=== PATIENT | female | born 1980 | race Caucasian/White ===

== ENCOUNTER → 2017-11-11 | Outpatient (CLI) | payer OTHER | LOC: FIMAGING 09:37 | PROVIDERS: ATTEND Obstetrics & Gynecology | DX: O09.522 Supervision of elderly multigravida, second trimester (principal); O09.292 Supervision of pregnancy with other poor reproductive or obstetric history, second trimester; O34.219 Maternal care for unspecified type scar from previous cesarean delivery; O99.282 Endocrine, nutritional and metabolic diseases complicating pregnancy, second trimester; Z68.34 Body mass index [BMI] 34.0-34.9, adult; Z36.89 Encounter for other specified antenatal screening; Z3A.19 19 weeks gestation of pregnancy ==

== ENCOUNTER → 2017-12-15 | Outpatient (CLI) | payer OTHER | LOC: FIMAGING 10:14 | PROVIDERS: ATTEND Obstetrics & Gynecology | DX: I80.02 Phlebitis and thrombophlebitis of superficial vessels of left lower extremity (principal) ==

== ENCOUNTER 2017-12-18 08:52 | Observation (INO) | payer OTHER ==
--- NOTE | 2017-12-18 11:01 | GHP ---
DATE OF ADMISSION: 12/18/2017 ADMITTING DIAGNOSIS: Intrauterine at 24 and 3/7 weeks gestation with left leg varicosities , suspected superficial thrombophlebitis and superficial clot. HISTORY OF PRESENT ILLNESS: Jody is a 37-year-old 4, para 1-0-2-1, who is at 24 and 3/7 week s' gestation with an EDC of 04/06/2018, based on LMP and early ultrasound. Her has been co mplicated by bilateral lower leg varicosities which are increasing in the left lower leg and she was evaluated most recently this week, on Wednesday, with a painful clot in the superficial vein over her left tibia. This morning patient complains of increasing pain and a new clot that has developed in the medial side of her knee and she has tenderness and erythema in the surrounding cutaneous tissue. The patient is concerned about possible deep vein thrombosis and increasing pain with superficial cl ots, and what she can do. She has no obstetrical complaints. She has good movement. No cramp ing or contractions, no vaginal bleeding, leakage of fluid, and otherwise feels well. Negative revie w of systems. The patient was recently evaluated, on 12/15, for this same complaint and had an extre mity venous Doppler study that showed superficial thrombophlebitis in the left anterior leg which is the area of pain. It was in a great saphenous system with a branch coming off her knee. She would b e a candidate for laser ablation at a later time. An upright venous Doppler study confirmed reflux a nd incompetence, it would be needed after delivery, but she was sent home with recommendations to use compression stockings, heat and rest as much as possible, and despite all of those measures, she has developed a new clot in the medial aspect of her left knee. PAST OBSTETRICAL HISTORY: She is a 4, this is her 4th . In January 2012, she had s pontaneous AB at 7 weeks. In December of 2014, she had a delivery at 38 weeks for arrest o f descent, that baby was 6 pounds 5 ounces, and in March of 2017, she had a missed AB diagnosed at 12 weeks, and that fetus was NIPT positive for trisomy 21. She had a D and C for that. This pregna ncy is normal reassuring, NIPT normal female and had a normal AFP and has normal level 2 ultrasound, anatomy is normal. She has no other significant medical or surgical issues. OBJECTIVE: Currently, she is afebrile. Vital signs are stable. Dopplers were reassuring. On exam, her left lower extremity has a large tender 4 cm x 5 cm varicosity medial to her left knee cassie t appears to be a superficial clot, as well as mottling and erythema along the cutaneous skin. Of no te, the patient is adopted and does not know her family history in terms of any history of clotting o r other issues. ASSESSMENT AND PLAN: A 37-year-old 4, para 1-0-2-1 at 24 and 3/7 weeks gestation. 1. Repeat left extremity Doppler study today to ensure that it is not involving the deep vein system or close to her inguinal area. 2. We will draw coag studies to rule out any familial clotting disorders, Factor 5 Leiden, protein C , protein S, antithrombin 3, anticardiolipin and lupus anticoagulant. These will be pending. I assu me the venous Doppler studies will be negative for deep vein issues and then I will discharge her wit h a trial of scheduled NSAIDS, heat, elevation and compression stockings. /[id number]/MODL
== END 2017-12-18 12:30 | disposition home or self-care (01) ==
LOC: FLD 08:52 → INTOOBSV 08:52
PROVIDERS: ADMIT Obstetrics & Gynecology; ATTEND Obstetrics & Gynecology
DX: O22.22 Superficial thrombophlebitis in pregnancy, second trimester (principal); Z3A.24 24 weeks gestation of pregnancy
CPT/HCPCS: 93971; G0378; 85301-90; 85302-90; 85306-90; 86147-90

== ENCOUNTER 2018-04-01 06:24 | Inpatient (IN) | payer OTHER ==
--- NOTE | 2018-03-08 17:36 | GHP ---
PLANNED PROCEDURE: Repeat low transverse section with possible bilateral salpingectomy. INDICATION: Patient is a 37-year-old 4, para 1-0-2-1, who will be 39 weeks gestation. Her e stimated date of confinement is 04/06/2018, dated by last menstrual period of 06/30/2017, consistent with a 7-week ultrasound. She has a history of a previous low transverse section for arrest of descent. The patient has been counseled on options of vaginal after section versu s repeat . Patient would like to have a repeat section. She and her are d iscussing whether or not she wants to have a bilateral salpingectomy or not. Her family status is co mplete, and they will let us know day of surgery. The risks and benefits have been reviewed with the patient. The patient has been properly consented. MEDICAL HISTORY: Significant for extensive superficial varicose veins, migraines; occasionally with aura, history of oral HSV, history of HPV, obesity. MEDICATIONS: vitamins and iron. SURGICAL HISTORY: section, wisdom tooth extraction, dilation and curettage. ALLERGIES: Percocet, which is an intolerance. FAMILY HISTORY: The patient is adopted. Family history is unknown. SOCIAL HISTORY: Patient is . She denies tobacco, alcohol, or drug use. 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 She is a 4, para 1-0 -2-1, and in 01/2014, she had a spontaneous that did not require a D and C. In 12/2014, she had a primary low transverse section for arrest of descent of a 6 pound 5 ounce male infant at 38 weeks gestation, and patient progressed to complete and pushed to 3-4 hours. Baby was in the wrong position, and she underwent a primary section and had a cervical extension. In , she had a missed diagnosed at 12 weeks, trisomy 21 noted on testing; she had a D and C for that. The patient does have a history of HPV in 2013, but repeat Pap smears have all bee n negative. She thinks she has a history of a cold sore as a child. REVIEW OF SYSTEMS: A 10-point review of systems is negative. There is positive movement. No loss of fluid. No vaginal bleeding. She does have bilateral varicose veins that cause pain occasion ally, but no signs or symptoms of DVT. PHYSICAL EXAMINATION: VITAL SIGNS: Stable. GENERAL APPEARANCE: Alert and oriented x3. PSYCH: Ap propriate affect. MUSCULOSKELETAL: Grossly intact. NEURO: Grossly intact. NECK: Mobile and supp le, with no thyromegaly. HEART: Regular. LUNGS: Clear to auscultation bilaterally. ABDOMEN: Gra vid, nondistended, nontender. No other organomegaly is noted. EXTREMITIES: Reveal no calf tenderne ss or edema. She has extensive bilateral varicose veins bilaterally. PELVIC: Deferred. in the vertex presentation. LABS: Blood type A negative. Antibody screen negative. Rubella immune. GBS is pending. HBsAg negative. HIV negative. Her 50 g glucose was 121. testing was negative. Alpha fet oprotein was negative. ASSESSMENT AND PLAN: A 37-year-old, 4, para 1-0-2-1, who will be 39+ weeks gestation, who august s a history of previous low transverse section. She has decided to have a repeat s ection and is declining a trial of labor. Her family status is complete and she and her are discussing whether or not she wants to have a bilateral salpingectomy. Risks and benefits have been extensively reviewed with the patient, and patient has been properly consented. /[id number]/MODL
[2018-04-01] MEDS: LR 1,000 ML IV SCH ×2 (07:30→11:52)
[2018-04-01] MEDS ORDERED: CITRIC ACID/SODIUM CITRATE 30 ML UDCUP PO ONE (07:39)
[2018-04-01] MEDS ORDERED: LR 500 ML IV ONE (07:39)
[2018-04-01] MEDS ORDERED: ceFAZolin 2 GM/DEXTROSE 100 ML IV ONE (07:39)
[2018-04-01 08:01] LABS: PLATELET COUNT 209 10^3/uL (150-400)
[2018-04-01] MEDS ORDERED: HYDROmorphONE/DILAUDID 1 MG/ML INJ IVP PRN (08:54)
[2018-04-01] MEDS ORDERED: MEPERIDINE 25 MG/0.5 ML AMP IVP PRN (08:54)
[2018-04-01] MEDS ORDERED: fentaNYL 100 MCG/2 ML INJ IVP PRN (08:54)
--- NOTE | 2018-04-01 08:54 | PREANESOB ---
Obstetric Pre-Anesthesia Info - General Info Proposed Procedure: C/S NPO Start Time: 00:00 : 4 Para: 1 PHIL: 04/06/18 Gestational Age: 39 week(s) and 2 day(s) - Info Status: Full Term Monitors: External FHR Baseline (bpm): 140 FHR Pattern: Reassuring - Labor Status Pitocin: Planned PIH: No Magnesium Sulfate in Use: No Section History: Repeat Indications for Current Section: Other (Specify) (Repeat, desired planned ) Anesthesia Allergies/Adverse Reactions: Allergy/AdvReac Type Severity Reaction Status Date / Time oxycodone [Oxycodone] Allergy Vomiting Verified 01/06/15 15:51 Home Medications: Medication Instructions Recorded Ibuprofen [Motrin (*)] 600 mg PO Q6 PRN #30 tab 01/03/15 Vitamins 01/06/15 Minipill 03/22/16 Visit Medications: Generic Name Dose Route Start Last Admin Trade Name Freq PRN Reason Stop Dose Admin Lactated Ringer's 1,000 mls @ 125 mls/hr 04/01/18 08:00 04/01/18 07:30 Lr IV 04/02/18 07:59 1,000 mls CONT ARMAAN Administration Discontinued Medications Generic Name Dose Route Start Last Admin Trade Name Freq PRN Reason Stop Dose Admin Citric Acid/Sodium Citrate 30 ml 04/01/18 07:39 04/01/18 08:42 Bicitra PO 04/01/18 07:40 30 ml ONCALL ONE Administration Cefazolin Sodium/Dextrose 100 mls @ 200 mls/hr 04/01/18 07:39 04/01/18 08:43 Ancef IV 04/01/18 08:08 100 mls ONCALL ONE Administration Protocol Lactated Ringer's 500 mls @ 0 mls/hr 04/01/18 07:39 Lr IV 04/01/18 07:40 ONCE ONE As Directed - Vital Signs Latest Vital Signs (Nursing): Temp Pulse Resp BP Pulse Ox 36.9 C 93 16 128/86 H 95 04/01/18 06:42 04/01/18 06:42 04/01/18 06:42 04/01/18 06:42 04/01/18 06:42 Height/Weight (Nursing): Height 160.02 cm Weight 92.079 kg Labs: 04/01/18 07:57
[2018-04-01] MEDS ORDERED: PHENYLEPHRINE 10 MG/ML SDV ONE ×2 (08:59→09:48)
[2018-04-01] MEDS ORDERED: BUPIVACAINE/DEXTROSE 7.5MG/ML 2 ML SPINAL AMP SP ONE (08:59)
[2018-04-01] MEDS ORDERED: ATROPINE SULFATE 0.4 MG/ML VIAL ONE ×2 (08:59→09:48)
[2018-04-01] MEDS ORDERED: PROPOFOL 200 MG/20 ML VIAL ONE (09:00)
[2018-04-01] MEDS ORDERED: morphINE PF 5 MG/10 ML INJ ONE (09:03)
--- NOTE | 2018-04-01 09:03 | PDHPUP ---
History & Physical Update H&P update statement: This history and physical update is based on an assessment of the patient which was completed after admission or registration (within 24 hours), but prior to the surgery/procedure. H&P update: H&P reviewed & patient examined, no change in patient's condition since H&P completed (patient has decided she wants a bilateral salpingectomy if baby is good. )
[2018-04-01] MEDS ORDERED: fentaNYL 100 MCG/2 ML INJ ONE (10:41)
[2018-04-01] MEDS ORDERED: LACTULOSE 20 GM/30 ML UDCUP PO PRN (10:47)
[2018-04-01] MEDS ORDERED: POLYETHYLENE GLYCOL 3350 17 GM PKT PO PRN (10:47)
[2018-04-01] MEDS ORDERED: PROMETHAZINE HCL 25 MG/ML INJ IVP PRN (10:47)
[2018-04-01] MEDS ORDERED: DOCUSATE SODIUM 100 MG CAP PO PRN (10:47)
[2018-04-01] MEDS ORDERED: MAGNESIUM HYDROXIDE 30 ML UDCUP PO PRN (10:47)
[2018-04-01] MEDS ORDERED: BISACODYL 10 MG SUPP PR PRN (10:47)
[2018-04-01] MEDS: KETOROLAC 30 MG/1 ML SDV IVP SCH ×2 (11:50→19:12)
[2018-04-01] MEDS: IBUPROFEN 600 MG TAB PO SCH ×3 (14:12→18:38)
[2018-04-01] MEDS ORDERED: ONDANSETRON 4 MG/2 ML VIAL IVP PRN (14:56)
[2018-04-01] MEDS ORDERED: NALOXONE HCL 0.4 MG/ML INJ IVP PRN (14:56)
--- NOTE | 2018-04-01 14:56 | POSTANESTH ---
Post Anesthetic Evaluation Cardiovascular Status: Normal, Stable Respiratory Status: Normal, Stable Level of Consciousness/Mental Status: Can Participate in Eval Pain Control: Adequate, Prn Tx Ordered Nausea/Vomiting Control: Adequate, Prn Tx Ordered Complications Possibly Related to Anesthesia: None Noted (moving feet and having some pain in abdomen when finished with C/S and in PACU. Able to hold and nurse baby)
[2018-04-01] MEDS: ACETAMINOPHEN 325 MG TAB PO SCH ×2 (15:13→18:22)
--- NOTE | 2018-04-01 22:17 | OBDEL ---
Info Type: Repeat Presentation at Delivery: Vertex L&D Analgesia/Anesthesia Type: Spinal GBS+: No Intrapartum Medications: Generic Name Dose Route Start Last Admin Trade Name Freq PRN Reason Stop Dose Admin Acetaminophen 650 mg 04/01/18 11:00 04/01/18 18:22 Tylenol PO 09/28/18 10:59 650 mg Q6H ARMAAN Administration Lactated Ringer's 1,000 mls @ 125 mls/hr 04/01/18 08:00 04/01/18 11:52 Lr IV 04/02/18 07:59 1,000 mls CONT ARMAAN Administration Ibuprofen 600 mg 04/01/18 11:00 04/01/18 18:38 Motrin PO 09/28/18 10:59 600 mg Q6H ARMAAN Administration Ketorolac Tromethamine 30 mg 04/01/18 11:00 04/01/18 19:12 Toradol IVP 04/02/18 05:01 Not Given Q6H ARMAAN Promethazine HCl 25 mg 04/01/18 10:47 04/01/18 13:52 Phenergan IVP 09/28/18 10:46 25 mg Q6HRS PRN Administration Nausea/Vomiting, Use 1st Discontinued Medications Generic Name Dose Route Start Last Admin Trade Name Freq PRN Reason Stop Dose Admin Citric Acid/Sodium Citrate 30 ml 04/01/18 07:39 04/01/18 08:42 Bicitra PO 04/01/18 07:40 30 ml ONCALL ONE Administration Cefazolin Sodium/Dextrose 100 mls @ 200 mls/hr 04/01/18 07:39 04/01/18 08:43 Ancef IV 04/01/18 08:08 100 mls ONCALL ONE Administration Protocol Indications for Delivery: Elective Vaginal Delivery - Labor and Delivery Rupture of Membranes Date: 04/01/18 Rupture of Membranes Time: 09:44 Placenta Delivery Date: 04/01/18 Placenta Delivery Time: 09:46 Operative Report - Delivery Pre-op Diagnoses: IUP 39 weeks, history prior c section, declines trail of labor , family status complete Post-op Diagnoses: same as pre op plus extensive adhesions History of Prior Section: Yes Number of Prior Sections: 1 Nulliparous Prior to Delivery: No Indications for Prior Section: Arrest of Descent, Non-reas. Status Indications for Current Section: Elective/Repeat, Other (Specify) ( Repeat, desired planned ) Procedure: Scheduled, Low Transverse, Tubal Ligation Surgeon: Renea Agosto Financial Management Analyst: Macrina Churchill (keith de leon) Anesthesiologist: Manjula Benson Complications: None Specimen(s)/Path: Fallopian Tube(s) EBL: 700 Data PHIL: 04/06/18 Gestational Age: 39 week(s) and 2 day(s) Chan Delivery Date: 04/01/18 Delivery Time: 09:44 Sex of Infant: Female Weight (gm): 3196 kg Score (1 Min): 8 Score (5 Min): 9 ICD10 Worksheet Patient Problems: Problems Problem Status Onset delivery delivered Acute Spontaneous onset of labor Acute
[2018-04-02] MEDS: IBUPROFEN 600 MG TAB PO SCH ×4 (00:46→19:46)
[2018-04-02] MEDS: SENNOSIDES/DOCUSATE SODIUM TAB PO SCH ×3 (00:47→19:46)
[2018-04-02] MEDS: ACETAMINOPHEN 325 MG TAB PO SCH ×4 (04:11→19:25)
[2018-04-02] MEDS: KETOROLAC 30 MG/1 ML SDV IVP SCH (04:11)
[2018-04-02] MEDS: HYDROCODONE/APAP 5/325 TAB PO PRN ×4 (07:54→21:00)
--- NOTE | 2018-04-02 08:34 | GOP ---
DATE OF OPERATION: 04/01/2018 SURGEON: Renea Agosto DO WORKERS COMPENSATION CLAIMS SUPERVISOR: 1. Macrina Churchill MD. 2. Gail Mcdonald CNM, being proctored by Macrina Churchill. ANESTHESIA: Spinal. ANESTHESIOLOGIST: Patience Benson DO PREOPERATIVE DIAGNOSIS: 1. Intrauterine at 39+ weeks. 2. History of previous low transverse section. Declines trial of labor. 3. Family status complete. POSTOPERATIVE DIAGNOSIS: 1. Intrauterine at 39+ weeks. 2. History of previous low transverse section. Declines trial of labor. 3. Family status complete. 4. Extensive adhesions. PROCEDURE PERFORMED: FINDINGS: 1. Viable female in the cephalic presentation delivered at 9:44 a.m. Apgars were 8 and 9. 2. Intact placenta with 3-vessel cord. 3. Normal ovaries, uterus and tubes. 4. Extensive peritoneal adhesions to the anterior abdominal wall and the uterus. SPECIMENS: Bilateral fallopian tubes. INDICATIONS: Patient is a 37-year-old, 4, para 1-0-2-1, who will be 39 weeks gestation. She has a history of a previous low transverse section and has decided against a trial of labor . Her family status is complete is complete and would like to have a bilateral salpingectomy. Risks and benefits have been reviewed with the patient. Patient has been properly consented. DESCRIPTION OF PROCEDURE: Patient was taken to the operating room with intravenous fluids in place. She was then placed on the operating room table where spinal anesthesia was obtained. She was then repositioned into the dorsal supine position with a leftward tilt. Wynne catheter was placed. Venod yne's were placed on her lower extremities and she was then prepped and draped in normal sterile [facility] ion. Anesthesia was assessed and found to be adequate. A Pfannenstiel skin incision was then made 2 fingerbreadths above the pubic symphysis. The incision was then carried through to the underlying l john of fascia with the Bovie. The fascia was then nicked in the midline and the fascial incision wa s extended laterally. The superior aspect of the fascial incision was then grasped with the Farida, tented up and the underlying rectus muscle dissected off bluntly with the Bovie. Attention was then turned to the inferior aspect of the fascial incision, which in a similar fashion was grasped with a Farida, tented up, and the underlying rectus muscle dissected off bluntly and with the Bovie. The re ctus muscle was then in the midline. The peritoneum was then identified, tented up, and en tered sharply with the Metzenbaum scissors. The incision was extended superiorly and inferiorly with excellent visualization of the bladder. An exam inside the peritoneal cavity was performed and ther e was noted to be extensive adhesions between the anterior abdominal wall and the uterus. These were carefully taken down to allow for easier access to the lower uterine segment. The bladder blade was then inserted. The vesicouterine peritoneum was then identified, tented up, and entered sharply wit h the Metzenbaum scissors. The incision was extended laterally and the bladder flap was created digi tally. The bladder blade was then reinserted. The uterus was then incised in low transverse fashion with the scalpel. The uterine incision was extended laterally. A large amount of clear fluid was n oted. The uterine incision was extended laterally. The viable infant was then delivered through the incision without difficulty. Delayed cord clamping x1 minute was performed. The cord was then clam ped x2 and cut and the infant was handed off to awaiting nurse practitioner. The intact augustus alves with 3-vessel cord then delivered without difficulty. The uterus was then exteriorized and evelyne ared of all clots and debris and wrapped in a moist laparotomy sponge. The hysterotomy was closed wi th 0 Vicryl in a running locked fashion. A 2nd 0 Vicryl stitch was used to imbricate the uterine inc ision. Additional adhesions were taken down from the lower uterine segment and the omentum and anter ior abdominal wall. The bilateral salpingectomy was performed by skeletonizing the vessels going to the fallopian tubes and with using 2-0 Vicryl suture hemostasis was assured. This was done bilateral ly. The uterus was then returned to the patient's abdomen. The tubal ligation sites were found to b e remaining hemostatic. The hysterotomy was found to be remaining hemostatic. Gutters were cleared of all clots and debris. Peritoneum was reapproximated with 3-0 Vicryl in a running fashion. Rectus muscles reapproximated with 2-0 Vicryl. Fascia was closed with 0 Vicryl in a running fashion. Scar pa's tissue was reapproximated with 3-0 Vicryl in a running fashion. Subcuticular tissue was reappro ximated with 3-0 Vicryl in a running fashion. The skin was then closed with yves. Sponge, lap, a nd needle count correct x2. The patient was transported to recovery room in stable condition. /[id number]/MODL
--- NOTE | 2018-04-02 11:03 | OBPP ---
Progress Note Assessment/Plan: Assessment: pod# 1 s/p RLTCS with bilateral salpingectomy anemia breast feeding routine post operative and post course Plan: 04/02/18 11:00 Subjective/ Course: 04/02/18 11:01 patient is doing well. much better recovery than after g1. pain is well controlled. normal lochia. passing gas. tesfaye still in. denies headache and changes in vision. tolerating diet. breast feeding is going well. Objective: 04/02/18 01:05 Patient ABO/Rh A NEGATIVE 04/01/18 07:57 Temp Pulse Resp BP Pulse Ox 37.4 C 95 17 105/60 93 04/02/18 05:10 04/02/18 08:00 04/02/18 05:10 04/02/18 05:10 04/02/18 08:00 Physical Exam - Physical Exam Neck: non-tender, full range of motion Respiratory: chest non-tender, lungs clear, normal breath sounds Cardiac/Chest: normal peripheral pulses, regular rate, rhythm Abdomen: normal bowel sounds, non-tender, other (fundus firm and non tender) Extremities: normal range of motion, non-tender, normal inspection, normal capillary refill Skin: normal color, warm/dry, other (incision covered) Neuro/Psych: no motor/sensory deficits, alert, normal mood/affect, oriented x 3
[2018-04-02] MEDS: FERRO-SEQUELS 65 MG TAB.ER PO SCH (13:12)
--- NOTE | 2018-04-02 17:58 | SOAPPROG ---
SOAP Progress Note Assessment/Plan: Assessment: S/P Csection with Duramorph spinal for post op pain. Follow up visit. Plan: 04/02/18 17:57 Subjective: Complaints of mild itching no headache or nausea Objective: Vital Signs Temp Pulse Resp BP Pulse Ox 37.4 C 95 17 105/60 93 04/02/18 05:10 04/02/18 08:00 04/02/18 05:10 04/02/18 05:10 04/02/18 08:00 Laboratory Results 04/02/18 01:05 04/01/18 04/02/18 04/03/18 05:59 05:59 05:59 Intake Total 4475 Output Total 3850 1600 Balance 625 -1600 - Time Spent With Patient Time Spent With Patient: 10 minutes ICD10 Worksheet Patient Problems: Problems Problem Status Onset delivery delivered Acute Spontaneous onset of labor Acute
[2018-04-03] MEDS: ACETAMINOPHEN 325 MG TAB PO SCH ×3 (01:44→16:32)
[2018-04-03] MEDS: IBUPROFEN 600 MG TAB PO SCH ×5 (01:44→20:15)
[2018-04-03] MEDS: HYDROCODONE/APAP 5/325 TAB PO PRN ×5 (01:44→20:17)
--- NOTE | 2018-04-03 11:27 | OBPP ---
Progress Note Assessment/Plan: Assessment: 37 y/o POD #2 s/p Rpt LTCS doing well. Plan: Bowel protocol today. Encourage ambulation. support and routine POC. Anticipate d/c home tomorrow. 04/03/18 11:26 Subjective/ Course: 04/02/18 11:01 patient is doing well. much better recovery than after g1. pain is well controlled. normal lochia. passing gas. tesfaye still in. denies headache and changes in vision. tolerating diet. breast feeding is going well. 04/03/18 11:24 Pt is dong well. She has good pain control on po meds. She is feeling gas pain like her body is trying to have a BM. We discussed bowel protocol and she will be proactive today. She is ambulating and voiding well and has min lochia. Breast feeding is going well and she feels she will be ready to d/c home tomorrow. Objective: 04/02/18 01:05 Patient ABO/Rh A NEGATIVE 04/01/18 07:57 Temp Pulse Resp BP Pulse Ox 36.8 C 84 18 115/73 95 04/03/18 08:00 04/03/18 08:00 04/03/18 08:00 04/03/18 08:00 04/03/18 08:00 Uterine Position/Fundal Height: Umbilicus -2 Uterine Tone: Firm Physical Exam - Physical Exam General Appearance: alert, no apparent distress Neck: non-tender, full range of motion, supple Respiratory: chest non-tender, lungs clear, normal breath sounds Cardiac/Chest: regular rate, rhythm Abdomen: normal bowel sounds, incision (c/d/i) Extremities: swelling (no), Janeen's sign (neg)
[2018-04-03] MEDS: SIMETHICONE 80 MG TAB CHEW PO PRN ×2 (12:19→20:16)
[2018-04-03] MEDS: SENNOSIDES/DOCUSATE SODIUM TAB PO SCH ×2 (12:19→20:16)
[2018-04-03] MEDS: FERRO-SEQUELS 65 MG TAB.ER PO SCH (12:19)
[2018-04-04] MEDS: HYDROCODONE/APAP 5/325 TAB PO PRN ×3 (00:59→09:12)
[2018-04-04] MEDS: IBUPROFEN 600 MG TAB PO SCH ×2 (02:09→08:18)
[2018-04-04] MEDS: ACETAMINOPHEN 325 MG TAB PO SCH ×2 (06:20→11:30)
[2018-04-04] MEDS: FERRO-SEQUELS 65 MG TAB.ER PO SCH (08:18)
[2018-04-04] MEDS: SENNOSIDES/DOCUSATE SODIUM TAB PO SCH (08:20)
[2018-04-04 09:56] VITALS: BP 126/68
--- NOTE | 2018-04-04 11:40 | OBPP ---
Progress Note Assessment/Plan: Assessment: 37 y/o POD #3 s/p Rpt LTCS doing well. Plan: D/c home today with Rx [place], Ibuprofen and Ferrous-sequels. Follow-up @ [facility] 2, 4, and 6 weeks. 04/03/18 11:26 04/04/18 11:39 Subjective/ Course: 04/02/18 11:01 patient is doing well. much better recovery than after g1. pain is well controlled. normal lochia. passing gas. tesfyae still in. denies headache and changes in vision. tolerating diet. breast feeding is going well. 04/03/18 11:24 Pt is dong well. She has good pain control on po meds. She is feeling gas pain like her body is trying to have a BM. We discussed bowel protocol and she will be proactive today. She is ambulating and voiding well and has min lochia. Breast feeding is going well and she feels she will be ready to d/c home tomorrow. 04/04/18 11:38 Pt is doing well and ready to d/c home. She has good pain control with po meds and had a + BM yesterday. No n/v, min lochia and BF is going well. Objective: 04/02/18 01:05 Patient ABO/Rh A NEGATIVE 04/01/18 07:57 Temp Pulse Resp BP Pulse Ox 36.3 C 93 18 126/68 H 95 04/04/18 08:51 04/04/18 08:51 04/04/18 08:51 04/04/18 08:51 04/04/18 08:51 Uterine Position/Fundal Height: Umbilicus -3 Uterine Tone: Firm Physical Exam - Physical Exam General Appearance: alert, no apparent distress Neck: non-tender, full range of motion, supple Respiratory: chest non-tender, lungs clear, normal breath sounds Cardiac/Chest: regular rate, rhythm Abdomen: normal bowel sounds, incision (c/d/i) Extremities: swelling (1+), Janeen's sign (neg)
--- NOTE | 2018-04-04 11:41 | OBGCSDC ---
General Delivery Information - General Info : 4 Para: 2 Abortions: 2 Type: Repeat L&D Analgesia/Anesthesia Type: Spinal Admission Date: 04/01/18 Labs: Patient ABO/Rh A NEGATIVE 04/01/18 07:57 Hct 34.5 % (38.0-47.0) L 04/02/18 01:05 - Hospital Course : 04/02/18 11:01 patient is doing well. much better recovery than after g1. pain is well controlled. normal lochia. passing gas. tesfaye still in. denies headache and changes in vision. tolerating diet. breast feeding is going well. 04/03/18 11:24 Pt is dong well. She has good pain control on po meds. She is feeling gas pain like her body is trying to have a BM. We discussed bowel protocol and she will be proactive today. She is ambulating and voiding well and has min lochia. Breast feeding is going well and she feels she will be ready to d/c home tomorrow. 04/04/18 11:38 Pt is doing well and ready to d/c home. She has good pain control with po meds and had a + BM yesterday. No n/v, min lochia and BF is going well. - Delivery Providers Surgeon: Renea Agosto Ecclesiastical Worker: Macrina Churchill (keith de leon) Anesthesiologist: Manjula Benson - Delivery Number of Prior Sections: 1 Indications for Current Section: Elective/Repeat, Other (Specify) ( Repeat, desired planned ) Surgical Procedures: Scheduled, Low Transverse, Tubal Ligation Intra-op Complications: None EBL: 700 [place] Data PHIL: 04/06/18 Gestational Age: 39 week(s) and 5 day(s) Chan Delivery Date: 04/01/18 Delivery Time: 09:44 Sex of : Female [place] Weight (gm): 3196 kg Score (1 Min): 8 Score (5 Min): 9 Discharge Information - Discharge Information Prescriptions: Hydrocodone/APAP 5/325 [[place] 5/325 (*)] 1 - 2 tab PO Q4HRS PRN #30 tab PRN Reason: Pain, Moderate Ibuprofen [Motrin (*)] 600 mg PO Q6H #30 tab Iron/Vit C/Docusate [Sameera-Sequels 65 mg (*)] 1 each PO DAILY #30 tab.er Condition: Good Instruction/Follow Up: Two Weeks, Four Weeks, Six Weeks
== END 2018-04-04 12:00 | disposition home or self-care (01) | DRG 785 ==
LOC: FLD 06:24 → FOB 12:28
PROVIDERS: ADMIT Obstetrics & Gynecology; ATTEND Obstetrics & Gynecology
DX: O34.219 Maternal care for unspecified type scar from previous cesarean delivery (principal); Z37.0 Single live birth; Z3A.39 39 weeks gestation of pregnancy
CPT/HCPCS: J0461; J0690; J1885; J2274; J2370; J2550; J2704; J3010